=== PATIENT | female | born 1965 | race Caucasian/White ===

== ENCOUNTER 2018-06-10 05:36 | Outpatient (CLI) | payer BC ==
[~2018-06-10] VITALS: Ht 152.4 cm; Wt 77.1 kg
[2018-06-10] MEDS ORDERED: RT-ALBUINH IH (12:47)
[2018-06-10] MEDS ORDERED: LOSA1TAB26 PO (12:47)
[2018-06-10] MEDS ORDERED: ASPI-816 PO (12:47)
== END 2018-06-10 13:10 ==
LOC: PREOP 05:36
PROVIDERS: ATTEND Surgery
DX: Z01.818 Encounter for other preprocedural examination (principal); Z09 Encounter for follow-up examination after completed treatment for conditions other than malignant neoplasm; Z87.19 Personal history of other diseases of the digestive system

== ENCOUNTER 2018-06-17 09:17 | Day surgery (SDC) | payer BC, OTHER ==
[~2018-06-17] VITALS: Ht 152.4 cm; Wt 77.1 kg
[~2018-06-17 09:17] MED LIST: ASPI-816 PO; LOSA1TAB26 PO; RT-ALBUINH IH
--- OUTSIDE RECORDS SUMMARY | 2018-06-17 09:20 | XMS REPORT ---
Author Author SHU GONZALEZ [facility] Address [address] [place] [address] Care Team Providers Care Physics Faculty Member Name Role Phone GIOEsequielSHU JOSEPH Unavailable PROBLEMS Type Condition ICD9-CM Code JDA28-OR Code Onset Dates Condition Status SNOMED Code Problem Influenza with other respiratory manifestations 487.1 Active 0448691 Problem Pain in joint, shoulder region 719.41 Active [id number] ALLERGIES No Information ENCOUNTERS Encounter Location Date Diagnosis [facility] [address] [address] Oct, [facility] [address] [id number] Jul, Bronchitis 490 [facility] [address] [address] Feb, [facility] [address] [address] Feb, [facility] [address] [address] Jan, [facility] [id number] [place] [id number] Jan, [facility] [address] [id number] Oct, [facility] [address] [address] Oct, [facility] [address] [id number] Jul, [facility] [address] [address] Jul, [facility] [address] [id number] May, [facility] [address] [id number] [address] May, [facility] [address] [id number] [phone] Apr, [facility] [address] [id number], [place] [address] Apr, [facility] [id number] [phone] Feb, [facility] [id number] [address] Feb, [facility] [address] [id number] [phone] Feb, [facility] [id number] [address] Feb, [facility] [id number] [address] Feb, [facility] [id number] [address] Jan, [facility] [id number] [address] Jan, [facility] [id number], [place] [address] Jan, IMMUNIZATIONS No Known Immunizations SOCIAL HISTORY Never Assessed REASON FOR VISIT Need Helps PLAN OF CARE VITAL SIGNS MEDICATIONS Unknown Medications RESULTS No Results PROCEDURES No Known procedures INSTRUCTIONS MEDICATIONS ADMINISTERED No Known Medications MEDICAL (GENERAL) HISTORY Type Description Date Hospitalization History pneumonia 2012 Hospitalization History bowel infection 2011
--- OUTSIDE RECORDS SUMMARY | 2018-06-17 09:20 | XMS REPORT ---
Author Author SHU GONZALEZ [facility] eClinicalWorks Address Unknown Phone Unavailable Care Team Providers Care Roll Plugger Machine Operator Name Role Phone SHU GONZALEZ CP Unavailable Allergies, Adverse Reactions, Alerts Substance Reaction Event Type N.K.D.A. Info Not Available Non Drug Allergy Problems Problem Type Condition Code Onset Dates Condition Status Problem Pain in joint, shoulder region 719.41 Active Assessment Bronchitis 490 Active Problem Influenza with other respiratory manifestations 487.1 Active Medications Medication Code System Code Instructions Start Date End Date Status Dosage Azithromycin [facility] [id number] 250 MG Orally Once a day 2 tablets on the first day, then 1 tablet daily for 4 days Agustina Ramirez [facility] [address]-80 100 MG Orally Three times a day Aug 02, 2015 1 capsule as needed Albuterol Sulfate [facility] [address]-48 108 (90 Base) MCG/ACT Inhalation every 4 hrs Aug 02, 2015 1 puff as needed Procedures Procedure Coding System Code Date THER/PROPH/DIAG INJ, SC/IM CPT-4 32013 Aug 02, 2015 Office Visit, Est Pt., Level 3 CPT-4 75468 Aug 02, 2015 SOLUMEDROL (UP TO 125 MG) CPT-4 J2930 Aug 02, 2015 Vital Signs Date/Time: Aug 02, 2015 Cardiac Monitoring Heart Rate 84 bpm Temperature 98.0 F Height 60 in Blood Pressure Diastolic 90 mmHg Blood Pressure Systolic 170 mmHg Results No Known Results Summary Purpose eClinicalWorks Submission
--- OUTSIDE RECORDS SUMMARY | 2018-06-17 09:21 | XMS REPORT | Continuity of Care Document ---
Author Author [facility] Address Unknown Phone Unavailable Allergies Active Description Code Type Severity Reaction Onset Reported/Identified Relationship to Patient Clinical Status Yes CODEINE SULFATE MODERATE OTHER Yes codeine Drug Allergy N/A N/A 01/03/2011 Medications Medication Packaging Start Date Stop Date Route Dosage Sig KETOROLAC VIAL INJ 60 MG/2CC (TORADOL VIAL) MG 06/29/2017 06/29/2017 ONCE&0611 NORMAL SALINE 1000CC IV BAG INJ 0.9 % (NS 1000CC IV BAG) ml 06/29/2017 07/14/2017 CONTINUOUSEVERY 0 Hour IBUPROFEN TAB 600 MG (MOTRIN) MG 06/29/2017 PRN ONCE METHYLPREDNISOLONE VIAL INJ 125 MG/2CC (SOLU-MEDROL VIAL) MG 10/28/2017 10/28/2017 ONCE&1502 ALBUTEROL SVN 2.5MG/3CC LIQ 2.5 MG (PROVENTIL LEWSI 2.5MG/3CC) MG 10/28/2017 11/07/2017 PRN Q4H IPRATROPIUM/ALBUTEROL INH SOLN (DUO-NEB INH SOLN) MLS 10/28/2017 11/04/2017 QID&0600,1100,1600,2100 METHYLPREDNISOLONE VIAL INJ 125 MG/2CC (SOLU-MEDROL VIAL) MG 10/28/2017 11/02/2017 Q6H&0600,1200,1800,2359 ENOXAPARIN SYRINGE INJ 30 MG (LOVENOX SYRINGE) MG 10/29/2017 11/07/2017 Daily&0900 CYCLOBENZAPRINE TAB 5 MG (FLEXERIL) Dose(s) 10/29/2017 11/04/2017 Daily&0900 CEFTRIAXONE PREMIX IV BAG IV 1 GM/50CC (ROCEPHIN PREMIX IV BAG) GM 10/29/2017 11/04/2017 Daily&0900 PANTOPAZOLE VIAL INJ 40 MG (PROTONIX IV) MG 10/29/2017 11/07/2017 Daily&0900 ACETAMINOPHEN ORAL TABLET 325mg(Tylenol) MG 10/29/2017 11/08/2017 PRN EVERY 4 Hour IPRATROPIUM/ALBUTEROL INH SOLN (DUO-NEB INH SOLN) MLS 10/30/2017 11/03/2017 Q4H&0200,0600,1000,1400,1800,2200 IPRATROPIUM/ALBUTEROL INH SOLN (DUO-NEB INH SOLN) MLS 10/30/2017 11/06/2017 Q4H&0600,1100,1600,2100 KETOROLAC VIAL INJ 30 MG/CC (TORADOL VIAL) MG 03/31/2018 03/31/2018 ONCE&1325 FENTANYL INJ 100 MCG/2CC VIAL MCG 03/31/2018 03/31/2018 ONCE&1336 FENTANYL INJ 100 MCG/2CC VIAL MCG 03/31/2018 03/31/2018 ONCE&1405 MIDAZOLAM 2CC VIAL INJ 1 MG/CC (VERSED 2CC VIAL) MG 03/31/2018 03/31/2018 ONCE&1410 NORMAL SALINE 250CC IV BAG INJ 0.9 % (NS 250CC IV BAG) ml 03/31/2018 03/31/2018 ONCE&1430 NORMAL SALINE 250CC IV BAG INJ 0.9 % (NS 250CC IV BAG) ml 03/31/2018 03/31/2018 ONCE&1653 LEVOFLOXACIN PREMIX IV BAG INJ 750 MG (LEVAQUIN PREMIX IV BAG) MG 03/31/2018 03/31/2018 ONCE&1720 LEVOFLOXACIN PREMIX IV BAG INJ 750 MG (LEVAQUIN PREMIX IV BAG) MG 03/31/2018 04/07/2018 Daily&0900 HYDROCODONE/APAP 5MG/325MG TAB 5 MG/325MG (BRENDAN-TAB 5/325) TAB 03/31/2018 04/10/2018 PRN Q4H KETOROLAC VIAL INJ 30 MG/CC (TORADOL VIAL) MG 03/31/2018 04/05/2018 PRN Q8H CYCLOBENZAPRINE TAB 5 MG (FLEXERIL) MG 04/01/2018 04/11/2018 PRN Daily NORMAL SALINE 250CC IV BAG INJ 0.9 % (NS 250CC IV BAG) ml 04/01/2018 04/07/2018 Daily&0900 PANTOPRAZOLE VIAL INJ 40 MG (PROTONIX IV) MG 04/01/2018 04/10/2018 Daily&0900 NORMAL SALINE 250CC IV BAG INJ 0.9 % (NS 250CC IV BAG) ml 04/01/2018 04/01/2018 ONCE&1455 LEVOFLOXACIN PREMIX IV BAG INJ 750 MG (LEVAQUIN PREMIX IV BAG) MG 04/01/2018 04/01/2018 ONCE&1630 NORMAL SALINE 250CC IV BAG INJ 0.9 % (NS 250CC IV BAG) ml 04/02/2018 04/02/2018 ONCE&1500 LEVOFLOXACIN PREMIX IV BAG INJ 750 MG (LEVAQUIN PREMIX IV BAG) MG 04/02/2018 04/02/2018 ONCE&1630 KETOROLAC VIAL INJ 60 MG/2CC (TORADOL VIAL) MG 05/07/2018 05/07/2018 ONCE&2155 LEVOFLOXACIN TAB 750 MG (LEVAQUIN) MG 05/07/2018 05/07/2018 ONCE&2228 METRONIDAZOLE TAB 500 MG (FLAGYL) MG 05/07/2018 05/07/2018 ONCE&2228 Problems Date Dx Coded Attending Type Code Diagnosis Diagnosed By 01/03/2011 CORNEL FUENTES APRN 278.02 OVERWEIGHT 01/03/2011 CORNEL FUENTES APRN 719.46 PAIN IN JOINT INVOLVING LOWER LEG 01/03/2011 CORNEL FUENTES APRN 844.9 SPRAIN OF UNSPECIFIED SITE OF KNEE AND LEG 01/03/2011 SPEEDY SNYDER DO 278.02 OVERWEIGHT 01/03/2011 SPEEDY SNYDER DO 719.46 PAIN IN JOINT INVOLVING LOWER LEG 01/03/2011 SPEEDY SNYDER DO 844.9 SPRAIN OF UNSPECIFIED SITE OF KNEE AND LEG 01/14/2011 CORNEL FUENTES APRN 251.2 HYPOGLYCEMIA UNSPECIFIED 01/14/2011 CORNEL FUENTES APRN 780.79 OTHER MALAISE AND FATIGUE 01/14/2011 SPEEDY SNYDER DO 251.2 HYPOGLYCEMIA UNSPECIFIED 01/14/2011 SPEEDY SNYDER DO 780.79 OTHER MALAISE AND FATIGUE 01/31/2011 CORNEL FUENTES APRN 717.3 OTHER AND UNSPECIFIED DERANGEMENT OF MEDIAL MENISCUS 01/31/2011 SPEEDY SNYDER DO 717.3 OTHER AND UNSPECIFIED DERANGEMENT OF MEDIAL MENISCUS 05/02/2011 CORNEL FUENTES APRN 717.7 CHONDROMALACIA OF PATELLA 05/02/2011 SNYDER SPEEDY HALE 717.7 CHONDROMALACIA OF PATELLA 01/29/2014 CORNEL FUENTES APRN 719.41 PAIN- SHOULDER 01/29/2014 SPEEDY SNYDER DO 719.41 PAIN- SHOULDER 06/29/2017 Krista Wells A 724.5 BACKACHE, UNSPECIFIED 06/29/2017 Krista Wells M54.9 DORSALGIA, UNSPECIFIED 10/28/2017 CARLYLE BALLESTEROS 491.21 OBSTRUCTIVE CHRONIC BRONCHITIS WITH (ACUTE) EXACERBATION 10/28/2017 CARLYLE BALLESTEROS J44.1 CHRONIC OBSTRUCTIVE PULMONARY DISEASE WITH (ACUTE) EXACERBATION 10/28/2017 CARLYLE BALLESTEROS 491.21 OBSTRUCTIVE CHRONIC BRONCHITIS WITH (ACUTE) EXACERBATION 10/28/2017 CARLYLE BALLESTEROS J44.1 CHRONIC OBSTRUCTIVE PULMONARY DISEASE WITH (ACUTE) EXACERBATION 10/28/2017 CARLYLE BALLESTEROS 491.21 OBSTRUCTIVE CHRONIC BRONCHITIS WITH (ACUTE) EXACERBATION 10/28/2017 CARLYLE BALLESTEROS J44.1 CHRONIC OBSTRUCTIVE PULMONARY DISEASE WITH (ACUTE) EXACERBATION 10/30/2017 CARLYLE BALLESTEROS 491.21 OBSTRUCTIVE CHRONIC BRONCHITIS WITH (ACUTE) EXACERBATION 10/30/2017 CARLYLE BALLESTEROS J44.1 CHRONIC OBSTRUCTIVE PULMONARY DISEASE WITH (ACUTE) EXACERBATION 10/31/2017 CARLYLE BALLESTEROS 327.23 OBSTRUCTIVE SLEEP APNEA (ADULT) (PEDIATRIC) 10/31/2017 CARLYLE BALLESTEROS 401.0 MALIGNANT ESSENTIAL HYPERTENSION 10/31/2017 CARLYLE BALLESTEROS 491.21 OBSTRUCTIVE CHRONIC BRONCHITIS WITH (ACUTE) EXACERBATION 10/31/2017 CARLYLE BALLESTEROS G47.33 OBSTRUCTIVE SLEEP APNEA (ADULT) (PEDIATRIC) 10/31/2017 CARLYLE BALLESTEROS I10 ESSENTIAL (PRIMARY) HYPERTENSION 10/31/2017 CARLYLE BALLESTEROS J44.1 CHRONIC OBSTRUCTIVE PULMONARY DISEASE WITH (ACUTE) EXACERBATION 02/26/2018 CARLYLE BLALESTEROS MD, Ot M51.14 INTVRT DISC DISORDERS W RADICULOPATHY, T 02/26/2018 CARLYEL BALLESTEROS MD, Ot M51.16 INTERVERTEBRAL DISC DISORDERS W RADICULO 03/09/2018 CARLYLE BALLESTEROS MD, Ot M51.14 INTVRT DISC DISORDERS W RADICULOPATHY, T 03/09/2018 CARLYLE BALLESTEROS MD, Ot M51.16 INTERVERTEBRAL DISC DISORDERS W RADICULO 03/31/2018 CARLYLE BALLESTEROS 682.6 CELLULITIS AND ABSCESS OF LEG, EXCEPT FOOT 03/31/2018 CARLYLE BALLESTEROS L03.116 CELLULITIS OF LEFT LOWER LIMB 03/31/2018 CARLYLE BALLESTEROS 682.6 CELLULITIS AND ABSCESS OF LEG, EXCEPT FOOT 03/31/2018 CARLYLE BALLESTEROS L02.416 CUTANEOUS ABSCESS OF LEFT LOWER LIMB 03/31/2018 CARLYLE BALLESTEROS L03.116 CELLULITIS OF LEFT LOWER LIMB 03/31/2018 CARLYLE BALLESTEROS 041.11 METHICILLIN SUSCEPTIBLE STAPHYLOCOCCUS AUREUS INFECTION IN CONDITIONS CLASSIFIED ELSEWHERE AND OF UNSPECIFIED SITE 03/31/2018 CARLYLE BALLESTEROS 401.0 MALIGNANT ESSENTIAL HYPERTENSION 03/31/2018 CARLYLE BALLESTEROS 682.6 CELLULITIS AND ABSCESS OF LEG, EXCEPT FOOT 03/31/2018 CARLYLE BALLESTEROS B95.61 METHICILLIN SUSCEP STAPH INFCT CAUSING DIS CLASSD ELSWHR 03/31/2018 CARLYLE BALLESTEROS I10 ESSENTIAL (PRIMARY) HYPERTENSION 03/31/2018 CARLYLE BALLESTEROS A L02.416 CUTANEOUS ABSCESS OF LEFT LOWER LIMB 03/31/2018 CARLYLE BALLESTEROS L03.116 CELLULITIS OF LEFT LOWER LIMB 04/01/2018 CARLYLE BALLESTEROS MD, Ot M51.14 INTVRT DISC DISORDERS W RADICULOPATHY, T 04/01/2018 CARLYLE BALLESTEROS MD, Ot M51.16 INTERVERTEBRAL DISC DISORDERS W RADICULO 04/01/2018 CARLYLE BALLESTEROS 041.11 METHICILLIN SUSCEPTIBLE STAPHYLOCOCCUS AUREUS INFECTION IN CONDITIONS CLASSIFIED ELSEWHERE AND OF UNSPECIFIED SITE 04/01/2018 CARLYLE BALLESTEROS 682.6 CELLULITIS AND ABSCESS OF LEG, EXCEPT FOOT 04/01/2018 CARLYLE BALLESTEROS B95.61 METHICILLIN SUSCEP STAPH INFCT CAUSING DIS CLASSD ELSWHR 04/01/2018 CARLYLE BALLESTEROS L02.416 CUTANEOUS ABSCESS OF LEFT LOWER LIMB 04/01/2018 CARLYLE BALLESTEROS L03.116 CELLULITIS OF LEFT LOWER LIMB 04/03/2018 CARLYLE BALLESTEROS W 041.11 METHICILLIN SUSCEPTIBLE STAPHYLOCOCCUS AUREUS INFECTION IN CONDITIONS CLASSIFIED ELSEWHERE AND OF UNSPECIFIED SITE 04/03/2018 CARLYLE BALLESTEROS W 682.6 CELLULITIS AND ABSCESS OF LEG, EXCEPT FOOT 04/03/2018 CARLYLE BALLESTEROS W B95.61 METHICILLIN SUSCEP STAPH INFCT CAUSING DIS CLASSD ELSWHR 04/03/2018 CARLYLE BALLESTEROS A L02.416 CUTANEOUS ABSCESS OF LEFT LOWER LIMB 04/03/2018 CARLYLE BALLESTEROS W L03.116 CELLULITIS OF LEFT LOWER LIMB 04/03/2018 CARLYLE BALLESTEROS W 041.11 METHICILLIN SUSCEPTIBLE STAPHYLOCOCCUS AUREUS INFECTION IN CONDITIONS CLASSIFIED ELSEWHERE AND OF UNSPECIFIED SITE 04/03/2018 CARLYLE BALLESTEROS W 682.6 CELLULITIS AND ABSCESS OF LEG, EXCEPT FOOT 04/03/2018 CARLYLE BALLESTEROS W B95.61 METHICILLIN SUSCEP STAPH INFCT CAUSING DIS CLASSD ELSWHR 04/03/2018 CARLYLE BALLESTEROS A L02.416 CUTANEOUS ABSCESS OF LEFT LOWER LIMB 04/03/2018 ELOINA BALLESTEROSHEL W L03.116 CELLULITIS OF LEFT LOWER LIMB 04/04/2018 CARLYLE BALLESTEROS W 041.11 METHICILLIN SUSCEPTIBLE STAPHYLOCOCCUS AUREUS INFECTION IN CONDITIONS CLASSIFIED ELSEWHERE AND OF UNSPECIFIED SITE 04/04/2018 CARLYLE BALLESTEROS 682.6 CELLULITIS AND ABSCESS OF LEG, EXCEPT FOOT 04/04/2018 CARLYLE BALLESTEROS W B95.61 METHICILLIN SUSCEP STAPH INFCT CAUSING DIS CLASSD ELSWHR 04/04/2018 CARLYLE BALLESTEROS A L02.416 CUTANEOUS ABSCESS OF LEFT LOWER LIMB 04/04/2018 ELOINA BALLESTEROSHEL W L03.116 CELLULITIS OF LEFT LOWER LIMB 04/05/2018 BALLESTEROSCARLYLE A 682.6 CELLULITIS AND ABSCESS OF LEG, EXCEPT FOOT 04/05/2018 BALLESTEROSELOINACARLYLE A L02.416 CUTANEOUS ABSCESS OF LEFT LOWER LIMB 04/06/2018 BALLESTEROS, CARLYLE A 682.6 CELLULITIS AND ABSCESS OF LEG, EXCEPT FOOT 04/06/2018 BALLESTEROSELOINACARLYLE A L02.416 CUTANEOUS ABSCESS OF LEFT LOWER LIMB 05/07/2018 Alfa Collazo W 596.3 DIVERTICULUM OF BLADDER 05/07/2018 Alfa Collazo W K57.92 DIVERTICULITIS OF INTESTINE, PART UNSPECIFIED, WITHOUT PERFORATION OR ABSCESS WITHOUT BLEEDING 05/07/2018 Alfa Collazo A 562.11 DIVERTICULITIS OF COLON WITHOUT MENTION OF HEMORRHAGE 05/07/2018 Alfa Collazo A K57.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 Results Test Result Range Urinalysis - 06/29/17 06:07 Icotest N/A Negative Urine-Appearance Clear Clear Urine-Bacteria 1+ Urine-Bilirubin Negative Negative Urine-Blood Negative Negative Urine-Color Yellow Colorless-Lt. Yellow Urine-Epithelial Cells 10-20/HPF Urine-Glucose Negative Negative Urine-Ketones Negative Negative Urine-Leukocytes Negative Negative Urine-Nitrite Negative Negative Urine-pH 6.5 5-8.5 Urine-Protein Negative Negative Urine-RBC Negative Urine-Specific [place] 1.025 1.000-1.030 Urine-WBC Rare/HPF Urobilinogen 0.2 E.U./dL 0.2-1.0 Comprehensive Metabolic Panel - 10/28/17 13:56 Albumin 4.2 g/dL 3.6-5.1 ALP 67 U/L 35-130 ALT 15 U/L 6-45 Anion Gap 17 6-14 AST 27 U/L 2-40 BUN 7 mg/dL 5-25 Calcium 9.3 mg/dL 8.3-10.4 Chloride 100 mmol/L 95-114 CO2 24 mEq/L 22-33 Creat 0.72 mg/dL 0.50-1.50 eGFR 86 mL/min/1.73m2 >59 Globulin 4.2 g/dL 2.3-3.5 Glucose 88 mg/dL 70-110 Osmo 281 280-295 Potassium 3.8 mmol/L 3.5-5.3 Sodium 137 mmol/L 134-148 TBil 0.2 mg/dL 0.2-1.2 TP 8.4 g/dL 6.0-8.3 Urinalysis - 10/28/17 15:38 Icotest N/A Negative Urine Volume Urine Volume Sufficient (10mL) Urine Yeast No Yeast present Urine-Appearance Clear Clear Urine-Bacteria Trace Urine-Bilirubin Negative Negative Urine-Blood Negative Negative Urine-Color Yellow Colorless-Lt. Yellow Urine-Glucose Negative Negative Urine-Ketones Negative Negative Urine-Leukocytes Negative Negative Urine-Nitrite Negative Negative Urine-Other Urine Saved if Culture Needed (48hrs from time of collection) Urine-pH 6.0 5-8.5 Urine-Protein Negative Negative Urine-RBC Rare/HPF Urine-Specific [place] <=1.005 1.000-1.030 Urine-WBC Negative Urobilinogen 0.2 E.U./dL 0.2-1.0 Other Culture - 03/31/18 12:58 PRELIM CULTURE RESULTS Scant Gram Positive MARY / ID to Follow MEDIA PLATED Setup at 14:30 on 03/31/2018 Sensi - 03/31/18 12:58 FINAL CULTURE RESULTS Staphylococcus aureus (Isolate 1) Ampicillin/Sulbactam <=8/4 Ampicillin <=2 Amoxicillin/K Clavulanate <=4/2 Ceftriaxone <=8 Clindamycin <=0.5 Cefoxitin Screen <=4 Ciprofloxacin <=1 Daptomycin <=0.5 Erythromycin <=0.5 Nitrofurantoin <=32 Gentamicin <=4 Gentamicin Synergy Screen N/R Inducible Clindamycin N/R Levofloxacin <=1 Linezolid 2 Moxifloxacin <=0.5 Oxacillin <=0.25 Penicillin <=0.03 Rifampin <=1 Streptomycin Synergy N/R Synercid <=0.5 Trimethoprim/ Sulfamethoxazole <=0.5/9.5 Tetracycline <=4 Vancomycin 1 BMP - 03/31/18 12:58 Anion Gap 17 6-14 BUN 8 mg/dL 5-25 Calcium 9.4 mg/dL 8.3-10.4 Chloride 107 mmol/L 95-114 CO2 20 mEq/L 22-33 Creat 0.71 mg/dL 0.50-1.50 eGFR 87 mL/min/1.73m2 >59 Glucose 94 mg/dL 70-110 Osmo 287 280-295 Potassium 3.5 mmol/L 3.5-5.3 Sodium 140 mmol/L 134-148 Lipase - 05/07/18 20:29 Lipase 30 U/L 7-59 Urinalysis - 05/07/18 21:05 Icotest N/A Negative Urine Volume Urine Volume Sufficient (10mL) Urine Yeast No Yeast present Urine-Appearance Slightly Cloudy Clear Urine-Bacteria 1+ Urine-Bilirubin Negative Negative Urine-Blood Negative Negative Urine-Color Yellow Colorless-Lt. Yellow Urine-Epithelial Cells 5-10/HPF Urine-Glucose Negative Negative Urine-Ketones Negative Negative Urine-Leukocytes Negative Negative Urine-Mucus 1+ Urine-Nitrite Negative Negative Urine-Other Urine Saved if Culture Needed (48hrs from time of collection) Urine-pH 6.0 5-8.5 Urine-Protein Negative Negative Urine-RBC 0-2/HPF Urine-Specific [place] 1.025 1.000-1.030 Urine-WBC 2-5/HPF Urobilinogen 0.2 0.2-1.0 Encounters ACCT No. Visit Date/Time Discharge Status Pt. Type Provider Facility Loc./Unit Complaint [id number] 06/01/2014 09:26:00 06/01/2014 23:59:59 CLS Outpatient SPEEDY SNYDER DO [id number] 01/29/2014 12:54:00 01/29/2014 23:59:59 CLS Outpatient CORNEL FUENTES APRN [id number] 02/25/2018 15:28:00 02/25/2018 23:59:59 CLS Outpatient CARLYLE BALLESTEROS MD [facility] RAD CHRONIC LUMBAR PAIN W / RT SIDED RADICULOPATHY [id number] 06/17/2018 09:30:00 PEN Preadmit MARIBEL WEISS MD [facility] ENDO HX DIVERTICULITIS [id number] 03/31/2018 12:20:00 Document Registration [id number] 05/07/2018 19:52:00 05/07/2018 22:38:00 DIS Outpatient [facility] [id number] 04/06/2018 12:56:00 04/06/2018 13:20:00 DIS Outpatient CARLYLE BALLESTEROS [id number] 04/05/2018 14:59:00 04/05/2018 23:59:00 DIS Outpatient CARLYLE BALLESTEROS [id number] 04/04/2018 15:03:00 04/04/2018 15:30:00 DIS Outpatient CARLYLE BALLESTEROS [id number] 04/02/2018 14:08:00 04/03/2018 18:25:00 DIS Outpatient CARLYLE BALLESTEROS [id number] 04/03/2018 14:04:00 04/03/2018 14:45:00 DIS Outpatient CARLYLE BALLESTEROS [id number] 04/01/2018 14:13:00 04/01/2018 18:15:00 DIS Outpatient CARLYLE BALLESTEROS [id number] 03/31/2018 12:20:00 03/31/2018 18:37:00 [id number] 12/11/2017 12:58:00 12/11/2017 23:59:00 DIS Outpatient CARLYLE BALLESTEROS [id number] 10/28/2017 13:05:00 10/31/2017 08:56:00 [facility] [id number] 06/29/2017 05:47:00 06/29/2017 07:05:00 DIS Outpatient [facility] [id number] 06/16/2018 18:33:00 Document Registration [id number] 06/29/2017 06:12:07 Document Registration
[2018-06-17] MEDS ORDERED: NS IV 500 ML 500 ML IV PRN (09:25)
[2018-06-17] MEDS ORDERED: NS IV 500 ML 500 ML ONE (09:27)
[2018-06-17] MEDS ORDERED: LIDOCAINE JELLY 2% (XYLOCAINE) 5 ML TUBE MM PRN (09:30)
[2018-06-17 10:14] VITALS: BP 140/87
--- NOTE | 2018-06-17 10:24 | Conscious Sedation/ASA ---
Conscious Sedation Pre-Proced Time Reviewed: 10:00 ASA Class: 2 Airway Mallampati Classification: (osage appropriate class) I. II. III, IV Lungs Heart ASA score ASA 1: a normal healthy patient ASA 2: a patient with a mild systemic disease (mid diabetes, controlled hypertension, obesity ASA 3: a patient with a severe systemic disease that limits activity (angina , COPD, prior Myocardial infarction) ASA 4: a patient with an incapacitating disease that is a constant threat to life (CHF, renal failure) ASA 5: a moribund patient not expected to survive 24 hrs. (ruptured aneurysm) ASA 6: a declared brain patient whose organs are being harvested. For emergent operations, add the letter E after the classification Grade 2 Sedation Plan: Analgesia, Amnesia, Plan communicated to team members, Discussed options with patient/fam, Discussed risks with patient/fam Note The patient is an appropriate candidate to undergo the planned procedure, sedation, and anesthesia. The patient immediately re-assessed prior to indication. MARIBEL WEISS MD Jun 17, 2018 10:24 am
--- NOTE | 2018-06-17 10:24 | Progress Note-Pre Operative ---
Pre-Operative Progress Note H&P Reviewed The H&P was reviewed, patient examined and no changes noted. Date Seen by Provider: Jun 17, 2018 Time Seen by Provider: 10:00 Date H&P Reviewed: Jun 17, 2018 Time H&P Reviewed: 10:00 Pre-Operative Diagnosis: hx diverticulitis MARIBEL WEISS MD Jun 17, 2018 10:24 am
[2018-06-17] MEDS ORDERED: HYDROcodone/APAP 5 MG/325 MG (LORTAB) TAB PO PRN (10:30)
[2018-06-17] MEDS ORDERED: ONDANSETRON 4 MG/2 ML (SDV) Z0FRAN IV PRN (10:30)
[2018-06-17] MEDS ORDERED: morphine INJ 10 MG/ML 1ML (SYR OR VIAL) IV PRN (10:30)
[2018-06-17] MEDS ORDERED: ACETAMINOPHEN 325 MG TABLET PO PRN (10:30)
[2018-06-17] MEDS ORDERED: LIDOCAINE JELLY 2% (XYLOCAINE) 5 ML TUBE ONE (10:47)
[2018-06-17] MEDS ORDERED: MIDAZOLAM 2 MG/2 ML (VERSED) VIAL ONE ×5 (10:48)
[2018-06-17] MEDS ORDERED: fentaNYL INJECTION 100 MCG/2 ML AMP ONE ×2 (10:48)
[2018-06-17] MEDS: MIDAZOLAM 2 MG/2 ML (VERSED) VIAL IVP PRN ×4 (11:05→11:16)
[2018-06-17] MEDS: fentaNYL INJECTION 100 MCG/2 ML AMP IVP PRN ×4 (11:06→11:23)
--- NOTE | 2018-06-17 11:44 | Progress Note-Post Operative ---
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 Procedure & Operative Findings Date of Procedure 06/17/18 Procedure Performed/Findings Colonoscopy. Anesthesia Type CS Estimated Blood Loss Estimated blood loss (mL): minimal Specimens/Packing Specimens Removed none MARIBEL WEISS MD Jun 17, 2018 11:44 am
--- NOTE | 2018-06-17 11:45 | Discharge Inst-Surgical ---
D/C Lap Instructions-ISELA Follow Up Appt in 2 weeks Activity as tolerated High Fiber Diet 25g or more per day Avoid Alcohol, Caffeine, Spicy [place] and Acid foods. Drink 64 fluid oz or more of fluids per day. Symptoms to Report: Fever over 101 degree F, Nausea/Vomiting If any problems/questions: Contact your physician or go to Emergency Room MARIBEL WEISS MD Jun 17, 2018 11:45 am
[2018-06-17 11:55] VITALS: BP 141/78
[2018-06-17 12:25] VITALS: BP 130/88
[2018-06-17 13:10] VITALS: BP 130/88
--- NOTE | 2018-06-17 19:22 | OPERATIVE REPORT ---
DATE OF SERVICE: 06/17/2018 ATTENDING PRIMARY CARE PHYSICIAN: Dr. Nanci Hernandez. PREOPERATIVE DIAGNOSIS: Episode of suspected diverticulitis with pain in the left lower abdominal quadrant, requiring IV antibiotics and admission. POSTOPERATIVE DIAGNOSIS: Chronic stage II external and internal hemorrhoids. The remainder of the colon and rectum were normal. There were no polyps or any neoplasms identified as well as no significant diverticulosis or inflammatory changes. PROCEDURE: Colonoscopy. SURGEON: Maribel Wiess MD ANESTHESIA: Conscious sedation. ESTIMATED BLOOD LOSS: Minimal. FINDINGS: Chronic stage II external and internal hemorrhoids, not actively edematous nor inflamed and no bleeding. There was no significant diverticulosis identified. There were also no mucosal inflammatory changes to indicate any active colitis. There were no polyps or any neoplasms identified. DISPOSITION: The patient tolerated the procedure well. INDICATIONS: The patient is a 52-year-old female, who developed a left groin abscess in 04/2018 and underwent an incision and drainage as well as antibiotics. She then developed pain in the left lower abdominal quadrant on 05/07/18 and was diagnosed with diverticulitis and was treated with bowel rest, IV fluids and IV antibiotics. She has not had a colonoscopy up to this point in her life. She does have a family history of colon cancer with her father being diagnosed and at age 60. DESCRIPTION OF PROCEDURE: The patient was brought to the endoscopy suite, laid in the left lateral decubitus position. After adequate IV pain and sedating medications and conscious sedation anesthesia, a digital rectal examination was performed. Chronic stage II external and internal hemorrhoids were identified, which were not actively edematous nor inflamed and no bleeding. Normal sphincter tone was felt and there were no palpable masses. The endoscope was then intubated into the anus and rectum gently insufflated. The endoscope was then advanced through the valves of Cantu in the rectum with no polyps or any neoplasms identified. Endoscope was then advanced to the sigmoid colon with no significant diverticulosis identified. There were also no mucosal inflammatory changes to indicate any active colitis. The endoscope was then advanced to the remainder of the descending, transverse and ascending colon and the cecum. These segments were normal as well. There were no signs of colitis as well as no polyps or any neoplasms. The endoscope was then slowly withdrawn while taking a second look and suctioning of residual air with no additional findings. The patient tolerated the procedure well. The CT scan findings may have indicated some form of bacterial overgrowth and colitis. She may have diverticulosis, which was just not identified on the colonoscopy but was on the CT scan. The CT scan may have just been an artifact as well. Either way, she does not have any polyps or any neoplasms identified and we will recommend conservative medical management with a high fiber diet with at least 25 to 30 grams of fiber per day. Due to her first degree family history of colon cancer, we will recommend a followup colonoscopy in 5 years. Job ID: [id number] DocumentID: [id number] Dictated Date: 06/17/2018 11:39:29 [employer] Date: 06/17/2018 19:21:59 Dictated By: MARIBEL WEISS MD MTDD
== END 2018-06-17 13:10 | disposition home or self-care (01) ==
LOC: ENDO 09:17
PROVIDERS: ATTEND Surgery
DX: K64.1 Second degree hemorrhoids (principal); Z80.0 Family history of malignant neoplasm of digestive organs; I10 Essential (primary) hypertension; J44.9 Chronic obstructive pulmonary disease, unspecified; G47.33 Obstructive sleep apnea (adult) (pediatric); Z87.891 Personal history of nicotine dependence; Z79.899 Other long term (current) drug therapy

== ENCOUNTER → 2018-10-16 | Outpatient (CLI) | payer BC ==
[~2018-10-16] MED LIST changes: +IOHEXOL 350 MG/ML 100 ML (OMNIPAQUE 350) VIAL IV ONE; +NS 100 ML (IVPB) BAG IV ONE; +RECEIVED CONTRAST (Hold Metformin) IV SCH
[2018-10-16 09:09] LABS: BUN/CREATININE RATIO 27; CALCIUM 9.7 MG/DL (8.5-10.1); CARBON DIOXIDE 25 MMOL/L (21-32); CHLORIDE 105 MMOL/L (98-107); CREATININE SERUM 0.77 MG/DL (0.60-1.30); GFR ESTIMATED > 60; GLUCOSE 85 MG/DL (70-105); SODIUM 141 MMOL/L (135-145)
--- NOTE | 2018-10-16 13:11 | Diagnostic Imaging Report ---
PROCEDURE: CT chest with contrast only. TECHNIQUE: Multiple contiguous axial images were obtained through the chest after administration of intravenous contrast. INDICATION: Pulmonary nodule noted on chest x-ray. COMPARISON: I do not have prior radiographs for correlation and have no report from that exam to localize the suspected density. FINDINGS: There is a calcified benign granuloma of just less than 1 cm in the right upper lobe. No noncalcified or suspicious chest nodule is apparent at this study. Some calcified hilar and mediastinal lymph nodes on a granulomatous basis. No suspicious julian lesion. No thoracic effusion or pneumothorax. There is no pneumonia. IMPRESSION: Benign calcified parenchymal and julian granulomatous disease. No suspicious chest nodule or acute abnormality. Dictated by: Dictated on workstation # [id number]
== END ==
LOC: RAD 08:35
PROVIDERS: ATTEND Family Medicine
DX: J84.10 Pulmonary fibrosis, unspecified (principal); R91.1 Solitary pulmonary nodule
CPT/HCPCS: 36415; 71260; 80048

== ENCOUNTER → 2018-12-02 | Outpatient (CLI) | payer BC ==
[~2018-12-02] MED LIST changes: -IOHEXOL 350 MG/ML 100 ML (OMNIPAQUE 350) VIAL IV ONE; -NS 100 ML (IVPB) BAG IV ONE; -RECEIVED CONTRAST (Hold Metformin) IV SCH
[2018-12-02 06:52] LABS: ALANINE AMINOTRANSFERASE 13 U/L (0-55); ALBUMIN 4.1 GM/DL (3.2-4.5); ALKALINE PHOSPHATASE 78 U/L (40-136); AMYLASE 55 U/L (25-125); BILIRUBIN,DIRECT 0.1 MG/DL (0.0-0.3); BILIRUBIN,INDIRECT 0.1 MG/DL; BILIRUBIN,TOTAL 0.2 MG/DL (0.1-1.0); BUN/CREATININE RATIO 19; CALCIUM 9.3 MG/DL (8.5-10.1); CARBON DIOXIDE 24 MMOL/L (21-32); CHLORIDE 109 MMOL/L (98-107); CREATININE SERUM 0.69 MG/DL (0.60-1.30); GFR ESTIMATED > 60; GLUCOSE 91 MG/DL (70-105); LIPASE 26 U/L (8-78); POTASSIUM 4.2 MMOL/L (3.6-5.0); SODIUM 142 MMOL/L (135-145); TOTAL PROTEIN 7.3 GM/DL (6.4-8.2)
--- NOTE | 2018-12-02 11:36 | Diagnostic Imaging Report ---
PROCEDURE: US abdomen complete. TECHNIQUE: Multiple real-time grayscale images were obtained over the abdomen in various projections. INDICATION: Epigastric pain. Right upper abdomen protrusion. COMPARISON: There are no prior ultrasound examinations available for comparison. FINDINGS: There is no evidence for cholelithiasis or acute cholecystitis and the common bile duct is not dilated. The distal most portion of the duct was obscured by bowel gas however. The pancreas was also partially obscured by bowel gas. The pancreas seems normal on the recent CT chest exam of 10/16/2018. The spleen is not enlarged but the echotexture of the spleen is more heterogeneous than usually seen. In reviewing the CT exam however the spleen appeared normal. The liver is homogeneous and not enlarged. The liver does seem more echogenic than usual and this appearance suggests fatty metamorphosis. The aorta was partially obscured by bowel gas. The IV is generally unremarkable. Reportedly, there is clinical concern regarding "protrusion" in the upper-outer of the right upper quadrant. There is no sign of a mass or a defect in the abdominal wall in this area. In reviewing the CT chest exam, there was no evidence for a hernia in this area either. However if clinical concern regarding an underlying abnormality persists, then a CT of the abdomen/pelvis exam would be recommended for further study. IMPRESSION: 1. There is no acute abnormality of the abdomen. In particular there is no sign of cholelithiasis or acute cholecystitis. 2. If clinical concern regarding an underlying abnormality of the gallbladder persists, then a nuclear medicine hepatobiliary scan would be recommended. 3. CT of the abdomen and pelvis should also be considered for possible ventral wall hernia. There was no abnormality identified on this study. Dictated by: Dictated on workstation # [id number]
== END ==
LOC: RAD 05:56
PROVIDERS: ATTEND Nurse Practitioner Family
DX: R10.13 Epigastric pain (principal)
CPT/HCPCS: 36415; 76700; 80048; 80076; 82150; 82565; 83690; 84520

== ENCOUNTER → 2020-11-30 | Outpatient (CLI) | payer BC ==
--- NOTE | 2020-11-30 10:58 | Diagnostic Imaging Report ---
PROCEDURE: CT urinary tract, rule out kidney stone. TECHNIQUE: Multiple contiguous axial images were obtained through the abdomen and pelvis without the use of intravenous contrast. Auto Exposure Controls were utilized during the CT exam to meet ALARA standards for radiation dose reduction. INDICATION: Hematuria with bilateral back pain. The lung bases are clear. Liver and gallbladder are unremarkable. No biliary ductal dilatation. Pancreas and spleen are unremarkable. No adrenal mass is detected. Small nonobstructing calculus lower pole right kidney is noted measuring 3 mm. No definite left-sided renal calculi are detected. No ureteral calculi or hydronephrosis is seen. There are no bladder calculi. Aorta is calcified but non-aneurysmal. Small and large bowel loops are normal caliber. There is diverticulosis of the sigmoid colon but no evidence of acute diverticulitis. There is no free fluid or fluid collection. Uterus unremarkable. Degenerative changes in the lower lumbar spine are noted. IMPRESSION: 1. Small nonobstructing right renal calculus. No ureteral calculi or hydronephrosis is detected. 2. Uncomplicated sigmoid diverticulosis. Dictated by: Dictated on workstation # [id number]
== END ==
LOC: RAD 10:30
PROVIDERS: ATTEND Family Medicine
DX: N20.0 Calculus of kidney (principal); K57.30 Diverticulosis of large intestine without perforation or abscess without bleeding; I63.9 Cerebral infarction, unspecified
CPT/HCPCS: 74176

== ENCOUNTER → 2020-12-07 | Outpatient (CLI) | payer BC ==
--- NOTE | 2020-12-07 15:09 | Diagnostic Imaging Report ---
PROCEDURE: MRI lumbar spine. TECHNIQUE: Multiplanar, multisequence MRI of the lumbar spine was performed without contrast. INDICATION: Chronic low back pain. COMPARISON: Lumbar MRI 02/25/2018. FINDINGS: Lumbar statures are stable. Grade 1 anterolisthesis of L4 on L5 on a degenerative basis unchanged. The remaining levels align normally. Disc space narrowing, endplate sclerosis and osteophytes are most severe at the T11-T12 level. There is increased sclerosis and fatty changes across the marrow of the articular endplates previously edematous. This showed no adverse interval development. Lower thoracic cord and the conus appeared normal. There is normal dispersal of the nerves of the cauda equina. There was no paravertebral mass, hemorrhage, or fluid collection. L4-L5 listhesis and disc bulge result in a mild degree of right foraminal stenosis increased from prior. No substantial canal narrowing. No high-grade foraminal or recess narrowing. IMPRESSION: Resolution of edema at the degenerated T11-T12 level now with mixed Modic type II and type III fatty and sclerotic changes. No acute bony pathology. Stable grade 1 anterolisthesis. Degenerative L4-L5 with mild foraminal narrowing. No substantial canal stenosis. No acute appearing abnormality. No adverse development. Dictated by: Dictated on workstation # [id number]
== END ==
LOC: RAD 12:57
PROVIDERS: ATTEND Nurse Practitioner Family
DX: M47.816 Spondylosis without myelopathy or radiculopathy, lumbar region (principal); M48.061 Spinal stenosis, lumbar region without neurogenic claudication; M43.16 Spondylolisthesis, lumbar region
CPT/HCPCS: 72148